=== PATIENT | female | born 1985 | race Caucasian/White ===

== ENCOUNTER 2019-02-03 17:42 | Emergency (ER) | payer BC ==
[~2019-02-03] VITALS: Ht 149.9 cm; Wt 104.3 kg
[2019-02-03] MEDS ORDERED: JARDIANCE25 MG PO (17:57)
[2019-02-03] MEDS ORDERED: JANUVIA100 MG PO (17:57)
[2019-02-03] MEDS ORDERED: METFORMIN HCL1000 MG PO (17:58)
[2019-02-03] MEDS ORDERED: LISINOPRIL10 MG PO (17:58)
[2019-02-03] MEDS ORDERED: LIPITOR20 MG PO (17:59)
[2019-02-03] MEDS ORDERED: LEVOTHYROXINE25 MCG PO (18:00)
== END 2019-02-03 18:25 | disposition home or self-care (01) ==
LOC: ED 17:42
DX: N61.1 Abscess of the breast and nipple (principal); E11.9 Type 2 diabetes mellitus without complications; Z88.2 Allergy status to sulfonamides; Z79.899 Other long term (current) drug therapy; Z79.84 Long term (current) use of oral hypoglycemic drugs
CPT/HCPCS: 99282